=== PATIENT | female | born 1950 | race Caucasian/White ===

== ENCOUNTER 2020-01-04 08:18 | Inpatient (IN) | payer MEDICARE, BC ==
[~2020-01-04 08:18] MED LIST: BACITRACIN INJ 50,000 UNIT VIAL ONE; BUPIVACAINE HCL 0.5 % INJ/PF 30 ML SDV ONE; CEFAZOLIN 2 GM/D5W RTU 2 GM/50 ML RTUPB IV PRN; DEXAMETHASONE SOD PHOSPHATE INJ 4 MG/1 ML VIAL ONE; FENTANYL CITRATE INJ/PF 250 MCG/5 ML AMPULE ONE; HEPARIN SOD (PORCINE) 1,000 UNIT/ML 10 ML VIAL ONE; LIDOCAINE 2% INJ-PF (20 MG/ML) 10 ML AMPUL ONE; MIDAZOLAM 2 MG/2 ML INJ ONE; MINERAL OIL (STERILE) 10 ML VIAL ONE; ONDANSETRON HCL INJ/PF 4 MG/2 ML SDV ONE; PROPOFOL INJ 200 MG/20 ML VIAL IV ONE
[2020-01-04] MEDS ORDERED: RINGERS SOLUTION,LACTATED 1,000 ML IV PRN (08:41)
[2020-01-04] MEDS ORDERED: DIPHENHYDRAMINE HCL 50 MG/ML VIAL IV PRN ×2 (08:46→10:13)
[2020-01-04] MEDS ORDERED: ACETAMINOPHEN 650 MG SUPP.RECT PR PRN (08:46)
[2020-01-04] MEDS ORDERED: MAGNESIUM HYDROXIDE SUSP 30 ML UDCUP PO PRN (08:46)
[2020-01-04] MEDS ORDERED: PROMETHAZINE HCL INJ 25 MG/1 ML VIAL IM PRN (08:46)
[2020-01-04] MEDS ORDERED: PROMETHAZINE HCL 25 MG TABLET PO PRN (08:46)
[2020-01-04] MEDS ORDERED: ACETAMINOPHEN SOLN 325 MG/10.15 ML UDCUP PO PRN (08:46)
[2020-01-04] MEDS ORDERED: DIPHENHYDRAMINE HCL 25 MG CAPSULE PO PRN (08:46)
[2020-01-04] MEDS ORDERED: ONDANSETRON HCL INJ/PF 4 MG/2 ML SDV IV PRN ×2 (08:46→10:13)
[2020-01-04] MEDS ORDERED: DIAZEPAM 2 MG TABLET PO PRN (08:50)
[2020-01-04] MEDS ORDERED: CEFAZOLIN 2 GM/D5W RTU 2 GM/50 ML RTUPB IV ONE (09:03)
[2020-01-04 09:12] LABS: URINE AMPHETAMINES SCREEN NEGATIVE; URINE BARBITURATES SCREEN NEGATIVE; URINE COCAINE SCREEN NEGATIVE; URINE MARIJUANA (THC) SCREEN NEGATIVE; URINE METHADONE SCREEN NEGATIVE; URINE PHENCYCLIDINE SCREEN NEGATIVE
[2020-01-04 09:18] LABS: URINE BENZODIAZEPINES SCREEN UNCONFIRMED POSITIVE
[2020-01-04] MEDS ORDERED: LISINOPRIL PO SCH (10:00)
[2020-01-04] MEDS ORDERED: (PENDING PHARMACY ID) (Potassium Chloride [Potassium Chloride] 10 MEQ) PO SCH (10:00)
[2020-01-04] MEDS ORDERED: MAGNESIUM OXIDE 250 MG PO SCH (10:00)
[2020-01-04] MEDS ORDERED: HYDROCHLOROTHIAZIDE PO SCH (10:00)
[2020-01-04] MEDS ORDERED: [UNRECOGNIZED DRUG - OTHER] PO SCH (10:00)
[2020-01-04] MEDS ORDERED: FENTANYL CITRATE INJ/PF 100 MCG/2 ML AMPUL IV PRN ×3 (10:13)
[2020-01-04] MEDS ORDERED: MEPERIDINE HCL/PF INJ 25 MG/1 ML DISP.SYRIN IV PRN (10:13)
[2020-01-04] MEDS ORDERED: PROMETHAZINE HCL INJ 25 MG/1 ML VIAL IV PRN (10:13)
[2020-01-04] MEDS ORDERED: BACITRACIN INJ 50,000 UNIT VIAL IR ONE (10:22)
[2020-01-04] MEDS ORDERED: MINERAL OIL (STERILE) 10 ML VIAL MC ONE (10:22)
[2020-01-04] MEDS ORDERED: HEPARIN (PORK) 10,000 UNIT/ML 5 ML VIAL MC ONE (10:22)
[2020-01-04] MEDS ORDERED: BUPIVACAINE INJ/PF LIPOSOME/PF 266 MG/20 ML SDV ONE (10:28)
[2020-01-04] MEDS ORDERED: BUPIVACAINE INJ/PF LIPOSOME/PF 266 MG/20 ML SDV IJ ONE (10:41)
[2020-01-04] MEDS ORDERED: METHOCARBAMOL INJ/PF 1000 MG/10 ML SDV ONE (11:45)
[2020-01-04] MEDS: FENTANYL CITRATE INJ/PF 100 MCG/2 ML AMPUL ONE ×3 (11:49→11:59)
--- NOTE | 2020-01-04 11:56 | Operative Report ---
Operative Report DATE OF SURGERY: 01/04/20 PREOPERATIVE DIAGNOSIS: L4 5 spondylolisthesis. L4-5 degenerative disc disease back pain instability. L4-5 stenosis POSTOPERATIVE DIAGNOSIS: L4 5 spondylolisthesis. L4-5 degenerative disc disease back pain instability. L4-5 stenosis. Status post robotically assisted lateral interbody spacer at L4-5 with posterior fusion posterior instrumentation robotically assisted L4-5 crest aspiration through separate incision for bone marrow aspirate for concentration as well as allografting in interbody space and interbody spacer L4-5 OPERATION: robotically assisted lateral interbody spacer at L4-5 with posterior fusion posterior instrumentation robotically assisted L4-5 crest aspiration through separate incision for bone marrow aspirate for concentration as well as allografting in interbody space and interbody spacer L4-5 SURGEON: BECKY MILLER CHUTE LOADER: KHALIF CARROLL ANESTHESIA: GA ESTIMATED BLOOD LOSS: 100 cc INTRAOPERATIVE FINDINGS: Where utilized Solera Medtronic screws 5.5 x 45 mm screws x2 at L4 and 5.5 x 40 mm screws x2 at L5 40 mm to on the left and 35 mm to on the right 22 mm interbody spacer from spineology PROCEDURE: Patient is brought into the room placed under general anesthesia received 2 g of Ancef within 1 hour of cut time was placed on the Ugo table medial epicondyles and axillary areas are well-padded. Neuro monitoring leads for SSEP and cranial motor testing are placed on the patient as well as a Guerra catheter is placed preoperatively. After appropriate surgical timeout the [employer] robot is utilized and on the right posterior superior iliac spine a pin is placed and attached to the robot. After obtaining registration imaging in the AP and oblique position and verification 0.5 x 45 mm screws x2 at L4 and 6.5 x 40 mm screws Solera Medtronic x2 at L5 screws are inserted using portal incisions on the right and the left at L4 and L5 bilaterally. Left iliac crest is aspirated at 2 different sites total of 50 cc of bone marrow aspirate are obtained and concentrated to be used an interbody spacer with the allograft. Attention was then paid to the left sided anterior lateral portal for entry into the disc space which is carried out under navigation guidance upon verification also with x-rays and then stimulation thresholds greater than 17 mA. Upon inserting the portal into the disc space at L4-5 fluoroscopy was used to verify the position as it did also to verify the screws position. Endplate sebastian and curettes and brushes are used to carry out a complete discectomy then the verify balloon is inserted to verify good contact with the endplates. Then the appropriate size mesh spacer is introduced into the interbody. The mesh spacer is soaked in bone marrow aspirate concentrate and is filled with bone graft showing good correction and good containment within the disc space at L4-5. Upon neuro monitoring testing and cranial motor testing found to be stable then the portal is removed anterior laterally and attention is then paid to the placement of the rods upon using the caliper device the appropriate length rods were determined to be 40 mm to on the left 35 mm to on the right those are passed down and locked into position and final tightened. Then the tabs are removed and the portals are irrigated with copious amounts of irrigation and the posterior superior iliac spine pin connected to the robot is removed as well and the deep and superficial tissues were infiltrated with 1.3% Exparel 20 cc mixed with 20 cc of 0.5% bupivacaine plain. The portals are closed using 2-0 Vicryl and then Dermabond and Steri-Strips then 4 x 4's were used to cover the wounds on the right and the left and dressed with coverall tape. Please note that this procedure could not be done without the assistance of Faizan Lomeli working to assist with the placement of the screws positioning of the robot carrying out the aspiration through the left side iliac crest aspiration please also note that the iliac crest aspiration is carried out on the left side through a separate incision. Faizan Lomeli was instrumental throughout this whole process and I could not have done this procedure without his assistance as mentioned above.
[2020-01-04] MEDS ORDERED: PROPOFOL INJ 200 MG/20 ML VIAL IV ONE (13:22)
[2020-01-04] MEDS ORDERED: CEFAZOLIN 2 GM/D5W RTU 2 GM/50 ML RTUPB IV SCH (14:00)
[2020-01-04] MEDS: POLYETHYLENE GLYCOL 3350 POWDER 17 GM/1 PACKET PO SCH (14:43)
[2020-01-04] MEDS: SENNOSIDES/DOCUSATE 8.6-50 MG 1 EACH TABLET PO SCH ×2 (14:43→17:54)
[2020-01-04] MEDS ORDERED: PHENYLEPHRINE HCL INJ/PF 10 MG/1 ML SDV ONE (14:44)
[2020-01-04] MEDS ORDERED: GLYCOPYRROLATE 1 MG/5 ML VIAL ONE (14:44)
[2020-01-04] MEDS ORDERED: METOCLOPRAMIDE HCL INJ/PF 10 MG/2 ML SDV ONE (14:44)
[2020-01-04] MEDS: ACETAMINOPHEN 325 MG TABLET PO SCH ×2 (14:54→21:49)
--- NOTE | 2020-01-04 15:02 | RADIOLOGY REPORT (SQ) ---
EXAM DESCRIPTION: L SPINE 2 VIEWS IMAGES COMPLETED DATE/TIME: 01/04/2020 2:53 pm REASON FOR STUDY: LUMBAR FUSION ASSISTED WITH FLUORO IN OR M51.36 OTHER INTERVERTEBRAL DISC DEGENER ATION, LUMBAR REGION M54.5 LOW BACK PAIN G89.4 CHRONIC PAIN SYNDROME COMPARISON: None. FLUOROSCOPY TIME: 1.3 minutes Spot images saved to PACS. TECHNIQUE: Intra-operative images acquired during surgical procedure to evaluate progress. NUMBER OF IMAGES: 3 LIMITATIONS: None. FINDINGS: Fluoroscopy was provided for intraoperative procedure. Please refer to the operative repo rt for further discussion. IMPRESSION: IMAGE(S) OBTAINED DURING PROCEDURE. COMMENT: Quality ID [id number]: Final reports for procedures using fluoroscopy that document radiation exp osure indices, or exposure time and number of fluorographic images (if radiation exposure indices are not available) Please consult full operative report of the attending physician for description of the procedure. TECHNICAL DOCUMENTATION: JOB ID: [id number] 2010 [employer]- All Rights Reserved Reading location - IP/workstation name: [email or web address]
--- NOTE | 2020-01-04 15:02 | RADIOLOGY REPORT (SQ) ---
EXAM DESCRIPTION: NO CHG FLUORO COMPLETE DATE/TIME: 01/04/2020 2:52 pm REASON FOR STUDY: LUMBAR FUSION ASSISTED WITH FLUORO IN OR M51.36 OTHER INTERVERTEBRAL DISC DEGENER ATION, LUMBAR REGION M54.5 LOW BACK PAIN G89.4 CHRONIC PAIN SYNDROME FINDINGS: Please see combined report for performance of procedure and radiologic supervision and int erpretation. IMPRESSION: Please see combined report for performance of procedure and radiologic supervision and i nterpretation. Reading location - IP/workstation name: [email or web address]
[2020-01-04] MEDS: CEFAZOLIN SODIUM 2 GM in DEXTROSE 5%-WATER 100 ML IV SCH ×2 (15:18→21:50)
[2020-01-04] MEDS: MAGNESIUM OXIDE 400 MG TABLET PO SCH (17:54)
[2020-01-04] MEDS: OXYCODONE HCL IR 5 MG TABLET PO PRN (17:55)
[2020-01-04] MEDS: GABAPENTIN 100 MG CAPSULE PO SCH (17:55)
[2020-01-04] MEDS: GABAPENTIN 300 MG CAPSULE PO SCH (21:49)
[2020-01-04] MEDS: ROPINIROLE HCL 0.25 MG TABLET PO SCH (21:50)
[2020-01-05] MEDS: OXYCODONE HCL IR 5 MG TABLET PO PRN ×5 (00:02→22:50)
[2020-01-05] MEDS: ACETAMINOPHEN 325 MG TABLET PO PRN (02:10)
[2020-01-05] MEDS: ACETAMINOPHEN 325 MG TABLET PO SCH ×3 (06:00→21:02)
[2020-01-05] MEDS: PANTOPRAZOLE SODIUM 40 MG TABLET.DR PO SCH (06:00)
[2020-01-05] MEDS: LEVOTHYROXINE SODIUM 0.05 MG TABLET PO SCH (06:00)
[2020-01-05] MEDS ORDERED: (PENDING PHARMACY ID) (Esomeprazole Magnesium [Esomeprazole Magnesium] 40 MG) PO SCH (08:00)
--- NOTE | 2020-01-05 08:19 | PDOC PROGRESS REPORT ---
Subjective Progress Note for:: 01/05/20 Subjective:: Postop day 1 L4-L5 lumbar fusion: Patient reports that she feels very weak and shaky and has not been able to progress well with physical therapy. She reports that her left leg and knee pain has resolved however she still has some which she describes as weakness. She reports pain in her arms. But reports her surgical site has minimal pain Reason For Visit: LUMBAR SPONDYLOLISTHESIS, LUMBAR RADICULOPATHY, Physical Exam Vital Signs: Temp Pulse Resp BP Pulse Ox 98.6 F 98 18 116/51 L 96 01/05/20 03:31 01/05/20 03:31 01/05/20 03:31 01/05/20 03:31 01/05/20 03:31 Intake & Output 01/04/20 01/05/20 01/06/20 06:59 06:59 06:59 Intake Total 3632 Output Total 1500 Balance 2132 Weight 86.18 kg 93.5 kg General appearance: PRESENT: no acute distress, cooperative Head exam: PRESENT: atraumatic, normocephalic Additional comments: Lumbar spine: Dressing is clean and dry no signs of drainage or blood on the dressing. Neurovascular the patient is intact bilateral calves are soft and nontender 2+ dorsalis pedis pulse bilaterally. She is able to move her legs and feet without difficulty. Normal postoperative tenderness is appreciated surgical site Neurological exam: PRESENT: alert, altered, awake, oriented to person, oriented to place, oriented to time Results Laboratory Results: 01/04/20 08:44 Blood Type AB POSITIVE Antibody Screen NEGATIVE Impressions: Fluoroscopy 01/04/20 00:00 IMPRESSION: Please see combined report for performance of procedure and radiologic supervision and interpretation. Lumbar Spine X-Ray 01/04/20 00:00 IMPRESSION: IMAGE(S) OBTAINED DURING PROCEDURE. Assessment & Plan - Time Time Spent with patient: Less than 15 minutes - Plan Summary Plan Summary: Status post lumbar fusion: Patient to progress with physical therapy today. Saran ssing does not need to be changed. Continue with pain medication. Consider discharge home tomorrow
[2020-01-05] MEDS: METHOCARBAMOL 750 MG TABLET PO PRN ×2 (10:01→22:44)
[2020-01-05] MEDS: SENNOSIDES/DOCUSATE 8.6-50 MG 1 EACH TABLET PO SCH ×2 (10:01→18:17)
[2020-01-05] MEDS: MAGNESIUM OXIDE 400 MG TABLET PO SCH (10:02)
[2020-01-05] MEDS: POTASSIUM CHLORIDE 10 MEQ TABLET.ER PO SCH (10:03)
[2020-01-05] MEDS: CALCIUM CARBONATE 600 MG TABLET PO SCH (10:03)
[2020-01-05] MEDS: LISINOPRIL 10 MG TABLET PO SCH (10:04)
[2020-01-05] MEDS: GABAPENTIN 100 MG CAPSULE PO SCH ×2 (10:04→18:19)
[2020-01-05] MEDS: POLYETHYLENE GLYCOL 3350 POWDER 17 GM/1 PACKET PO SCH (10:04)
[2020-01-05] MEDS ORDERED: FAMOTIDINE 20 MG TABLET PO SCH (11:00)
[2020-01-05] MEDS: HYDROCHLOROTHIAZIDE 12.5 MG TABLET PO SCH (12:33)
[2020-01-05] MEDS: GABAPENTIN 300 MG CAPSULE PO SCH (21:02)
[2020-01-05] MEDS: ROPINIROLE HCL 0.25 MG TABLET PO SCH (21:03)
[2020-01-06] MEDS: OXYCODONE HCL IR 5 MG TABLET PO PRN ×2 (03:00→08:01)
[2020-01-06] MEDS ORDERED: BISACODYL 5 MG TABEC PO PRN (05:00)
[2020-01-06] MEDS ORDERED: BISACODYL 10 MG SUPP.RECT PR PRN (05:00)
[2020-01-06] MEDS: ACETAMINOPHEN 325 MG TABLET PO SCH (05:25)
[2020-01-06] MEDS: PANTOPRAZOLE SODIUM 40 MG TABLET.DR PO SCH (05:26)
[2020-01-06] MEDS: LEVOTHYROXINE SODIUM 0.05 MG TABLET PO SCH (05:26)
[2020-01-06] MEDS: ACETAMINOPHEN 325 MG TABLET PO PRN (08:01)
--- NOTE | 2020-01-06 08:18 | PDOC DISCHARGE SUMMARY ---
General - Admit/Disc Date/PCP Admission Date/Primary Care Provider: 01/04/20 08:18 Discharge Date: 01/06/20 - Discharge Diagnosis Final Diagnosis: Status post robotically assisted L4-5 interbody fusion and posterior instru mentation and fusion. - Assessment Summary: Patient was admitted underwent robotically assisted anterior lateral fusion posterior lateral fusion and instrumentation and did well postoperatively progressed with physical therapy and will be discharged home to follow-up in the office in 10 to 14 days - Additional Information Resuscitation Status: Full Code Discharge Diet: As Tolerated Discharge Activity: No Driving, No Lifting/Push/Pulling Referrals: BECKY GARZA MD [ASSOCIATE] - 01/10/20 1:00 pm Prescriptions: Acetaminophen 1,000 mg PO TID #120 capsule Oxycodone HCl [Oxy-Ir 5 mg Tablet] 5 mg PO Q4HP PRN #40 tablet PRN Reason: For Pain Methocarbamol [Robaxin 750 mg Tablet] 1,500 mg PO Q8HP #180 tablet Ondansetron HCl/Pf [Zofran Inj/Pf 4 mg/2 ml Sdv] 4 mg PO Q6HP PRN #60 vial PRN Reason: For Nausea/Vomiting Home Medications: Diazepam [Valium 2 mg Tablet] 2 mg PO BID 01/04/20 Docusate Sodium [Stool Softener] 50 mg PO QAM 01/04/20 Esomeprazole Magnesium 40 mg PO DAILY 01/04/20 Estradiol 1 mg PO DAILY 01/04/20 Famotidine 40 mg PO QPM 01/04/20 Fluconazole [Diflucan] 150 mg PO PRN PRN 01/04/20 Gabapentin 300 mg PO TID 01/04/20 Gabapentin [Neurontin 100 mg Capsule] 100 mg PO TID 01/04/20 Lactobacillus Combo No.11 [Probiotic] 1 cap PO DAILY 01/04/20 Levocetirizine Dihydrochloride [Xyzal] 5 mg PO QPM 01/04/20 Levothyroxine Sodium 50 mcg PO DAILY 01/04/20 Lisinopril/Hydrochlorothiazide [Lisinopril-Hctz 10-12.5 mg Tab] 1 tab PO DAILY 01/04/20 Magnesium Oxide 250 mg PO BID 01/04/20 Melatonin 10 mg PO QHS 01/04/20 Multivitamin [Multivitamins] 1 cap PO DAILY 01/04/20 Acetaminophen 1,000 mg PO TID #120 capsule 01/06/20 Gabapentin [Neurontin 100 mg Capsule] 100 mg PO BID capsule 01/06/20 Gabapentin [Neurontin 300 mg Capsule] 300 mg PO QHS capsule 01/06/20 Hydrochlorothiazide [Hydrodiuril 12.5 mg Tablet] 12.5 mg PO DAILY tablet 01/06/20 Levothyroxine Sodium [Synthroid 0.05 mg Tablet] 0.05 mg PO Q6AM tablet 01/06/20 Lisinopril [Prinivil 10 mg Tablet] 10 mg PO DAILY tablet 01/06/20 Magnesium Hydroxide [Milk of Magnesia 30 ml Udcup] 30 ml PO DAILYP PRN udc 01/06/20 Magnesium Oxide [Mag-Ox 400 mg Tablet] 200 mg PO DAILY tablet 01/06/20 Methocarbamol [Robaxin 750 mg Tablet] 1,500 mg PO Q8HP #180 tablet 01/06/20 Ondansetron HCl/Pf [Zofran Inj/Pf 4 mg/2 ml Sdv] 4 mg PO Q6HP PRN #60 vial 01/06/20 Oxycodone HCl [Oxy-Ir 5 mg Tablet] 5 mg PO Q4HP PRN #40 tablet 01/06/20 Pantoprazole Sodium [Protonix [address] Tablet] 40 mg PO Q6AM tablet. 01/06/20 History of Present Illiness History of Present Illness: EDITA JARRETT is a 69 year old female Physical Exam Vital Signs: Temp Pulse Resp BP Pulse Ox 98.5 F 89 20 140/65 H 99 01/05/20 23:19 01/05/20 23:19 01/05/20 23:19 01/05/20 23:19 01/05/20 23:19 Intake & Output 01/05/20 01/06/20 01/07/20 06:59 06:59 06:59 Intake Total 3632 1800 Output Total 1500 600 Balance 2132 1200 Weight 93.5 kg 89.6 kg Results Laboratory Results: Urine Opiates Screen NEGATIVE 01/04/20 08:20 Urine Methadone Screen NEGATIVE 01/04/20 08:20 Ur Barbiturates Screen NEGATIVE 01/04/20 08:20 Ur Phencyclidine Scrn NEGATIVE 01/04/20 08:20 Ur Amphetamines Screen NEGATIVE 10/28/20 08:20 U Benzodiazepines Scrn UNCONFIRMED POSITIVE 01/04/20 08:20 Urine Cocaine Screen NEGATIVE 01/04/20 08:20 U Marijuana (THC) Screen NEGATIVE 01/04/20 08:20 Blood Type AB POSITIVE 01/04/20 08:44 Antibody Screen NEGATIVE 01/04/20 08:44 Impressions: Fluoroscopy 01/04/20 00:00 IMPRESSION: Please see combined report for performance of procedure and radiologic supervision and interpretation. Lumbar Spine X-Ray 01/04/20 00:00 IMPRESSION: IMAGE(S) OBTAINED DURING PROCEDURE.
[2020-01-06] MEDS: MAGNESIUM OXIDE 400 MG TABLET PO SCH (09:07)
[2020-01-06] MEDS: POLYETHYLENE GLYCOL 3350 POWDER 17 GM/1 PACKET PO SCH (09:07)
[2020-01-06] MEDS: LISINOPRIL 10 MG TABLET PO SCH (09:08)
[2020-01-06] MEDS: POTASSIUM CHLORIDE 10 MEQ TABLET.ER PO SCH (09:08)
[2020-01-06] MEDS: HYDROCHLOROTHIAZIDE 12.5 MG TABLET PO SCH (09:08)
[2020-01-06] MEDS: METHOCARBAMOL 750 MG TABLET PO PRN (09:08)
[2020-01-06] MEDS: GABAPENTIN 100 MG CAPSULE PO SCH (09:09)
[2020-01-06] MEDS: CALCIUM CARBONATE 600 MG TABLET PO SCH (09:09)
[2020-01-06] MEDS: SENNOSIDES/DOCUSATE 8.6-50 MG 1 EACH TABLET PO SCH (09:09)
[2020-01-06 09:56] VITALS: BP 118/65
== END 2020-01-06 11:25 | disposition home or self-care (01) | DRG 460 ==
LOC: INOR 08:18 → 4S 12:52
PROVIDERS: ADMIT Orthopaedic Surgery; ATTEND Orthopaedic Surgery
PROC: 0SG03K1 Fusion of Lumbar Vertebral Joint with Nonautologous Tissue Substitute, Posterior Approach, Posterior Column, Percutaneous Approach (ICD-10-PCS; 2020-01-04)
PROC: 0ST20ZZ Resection of Lumbar Vertebral Disc, Open Approach (ICD-10-PCS; 2020-01-04)
PROC: 07DR3ZZ Extraction of Iliac Bone Marrow, Percutaneous Approach (ICD-10-PCS; 2020-01-04)
PROC: 8E0W3CZ Robotic Assisted Procedure of Trunk Region, Percutaneous Approach (ICD-10-PCS; 2020-01-04)
PROC: 0SG0371 Fusion of Lumbar Vertebral Joint with Autologous Tissue Substitute, Posterior Approach, Posterior Column, Percutaneous Approach (ICD-10-PCS; principal; 2020-01-04 10:15)
DX: M43.16 Spondylolisthesis, lumbar region (principal); M51.36 Other intervertebral disc degeneration, lumbar region; G89.4 Chronic pain syndrome; M47.817 Spondylosis without myelopathy or radiculopathy, lumbosacral region; M54.5 Low back pain; E78.5 Hyperlipidemia, unspecified; Z83.3 Family history of diabetes mellitus; Z82.49 Family history of ischemic heart disease and other diseases of the circulatory system; Z79.899 Other long term (current) drug therapy
CPT/HCPCS: 00630; 72100; 80307; 86850; 86900; 86901; 94760; 94799; C1713; C1781; C9290; J0690; J1100; J1644; J2250; J2370; J2405; J2704; J2765; J2800; J3010; J3490; J7060; J7120; Q9966